=== PATIENT | male | born 1955 | race Two or more races ===

== ENCOUNTER 2023-01-21 08:17 | Inpatient (IN) | payer OTHER ==
[~2023-01-21] VITALS: Ht 180.3 cm; Wt 163.1 kg
[2023-01-21] MEDS ORDERED: PIPERACILLIN-TAZOB 3.375GM 100 ML IV ONE (09:45)
[2023-01-21 10:46] LABS: Basophils # (auto) 0.1 10 ^3/uL (0-0.2); Basophils % (auto) 0.5 % (0.0-2.0); Eosinophils # (auto) 0.1 10 ^3/uL (0-0.8); Hematocrit 45.4 % (41.0-53.0); Hemoglobin 15.6 g/dL (13.5-17.5); Lymphocytes # (auto) 2.1 10 ^3/uL (0.4-5.4); Lymphocytes % (auto) 18.3 % (10.0-50.0); Mean Corpuscular Hemoglobin 33.9 pg (28.0-32.0); Mean Corpuscular Hgb Conc. 34.3 g/dL (32.0-36.0); Mean Corpuscular Volume 98.8 fL (80.0-100.0); Monocytes # (auto) 0.6 10 ^3/uL (0-1.3); Monocytes % (auto) 5.5 % (0.0-12.0); Neutrophils # (auto) 8.8 10 ^3/uL (1.6-8.6); Neutrophils % (auto) 74.7 % (37.0-80.0); Nucleated Red Blood Cells % 0.1 %; Red Cell Distribution Width 14.4 % (11.8-14.3); White Blood Cell 11.7 10^3/uL (4.4-10.8)
[2023-01-21 11:07] LABS: Albumin 3.2 g/dL (3.4-5.0); Calcium 9.1 mg/dL (8.5-10.1); Potassium 3.6 mmol/L (3.5-5.1)
[2023-01-21 11:10] LABS: BUN/Creatinine Ratio 14.4 (10.0-20.0); Bilirubin, Total 0.5 mg/dL (0.2-1.0); Lactic Acid w/Reflex 2.9 mmol/L (0.4-2.0); Total Protein 8.2 g/dL (6.4-8.2)
[2023-01-21 12:51] VITALS: PULSE 74; RESP 18; O2SAT 98
[2023-01-21] MEDS ORDERED: CLINDAMYCIN HCL 150 MG CAP PO ONE (15:15)
[2023-01-21] MEDS ORDERED: VANCOMYCIN PER PHARMACY 0 MG IV SCH (17:00)
[2023-01-21] MEDS ORDERED: ACETAMINOPHEN 325 MG TAB PO PRN (17:00)
[2023-01-21] MEDS ORDERED: DOCUSATE SOD 100 MG CAP PO PRN (17:00)
[2023-01-21] MEDS ORDERED: HYDROmorphone HCL 2 MG/ML VL/or syr IV PRN (17:00)
[2023-01-21] MEDS: VANCOMYCIN 1GM/250ML 250 ML IV SCH (17:42)
[2023-01-21 18:53] LABS: Erythrocyte Sedimentation Rate 58 mm/hr (0-20)
[2023-01-21 19:31] VITALS: PULSE 92; RESP 13; O2SAT 90
[2023-01-21] MEDS: PIPERACILLIN-TAZO 4.5GM 100 ML IV SCH (19:54)
[2023-01-21] MEDS: SODIUM CHLOR 0.9% PF (SALINE LOCK) 10ML VIAL/SYR IV SCH (22:33)
[2023-01-21 23:22] LABS: Urine Bacteria NONE SEEN /hpf (None Seen); Urine Blood Negative /uL (Negative); Urine Clarity Clear (Clear); Urine Color Colorless (Yellow); Urine Protein, UAD Negative (Negative); Urine Specific Gravity 1.013 (1.001-1.035); Urine Urobilinogen Normal (Negative); Urine WBC 1 /hpf (0 - 3); Urine pH 5.5 (5.0-8.0)
[2023-01-22] VITALS (7 sets, daily range): BP systolic 121–129; BP diastolic 73–83; PULSE 83–101; RESP 16–24; TEMP 97.2–98.7; O2SAT 92–97
[2023-01-22] MEDS: VANCOMYCIN 1GM/250ML 250 ML IV SCH ×2 (03:27→18:03)
[2023-01-22] MEDS: PIPERACILLIN-TAZO 4.5GM 100 ML IV SCH ×3 (04:49→22:11)
[2023-01-22] MEDS: SODIUM CHLOR 0.9% PF (SALINE LOCK) 10ML VIAL/SYR IV SCH ×3 (06:10→22:12)
[2023-01-22] MEDS ORDERED: ENOXAPARIN SOD 40 MG/0.4 ML SYRINGE SC SCH (10:00)
[2023-01-22] MEDS: ENOXAPARIN SOD 40 MG/0.4 ML SYRINGE SC SCH ×2 (10:06→22:12)
[2023-01-22] MEDS ORDERED: DOXYCYCLINE 100MG/250ML 250 ML IV SCH (12:15)
[2023-01-22] MEDS ORDERED: VANCOMYCIN PER PHARMACY 0 MG IV SCH (16:30)
[2023-01-23] VITALS (8 sets, daily range): BP systolic 111–131; BP diastolic 66–78; PULSE 76–99; RESP 18–24; TEMP 98.3–99.4; O2SAT 92–98
[2023-01-23] MEDS: VANCOMYCIN 1GM/250ML 250 ML IV SCH (03:53)
[2023-01-23 06:07] LABS: Basophils # (auto) 0.1 10 ^3/uL (0-0.2); Basophils % (auto) 0.7 % (0.0-2.0); Eosinophils # (auto) 0.3 10 ^3/uL (0-0.8); Hematocrit 41.5 % (41.0-53.0); Hemoglobin 13.8 g/dL (13.5-17.5); Lymphocytes # (auto) 2.6 10 ^3/uL (0.4-5.4); Lymphocytes % (auto) 28.9 % (10.0-50.0); Mean Corpuscular Hemoglobin 33.3 pg (28.0-32.0); Mean Corpuscular Hgb Conc. 33.2 g/dL (32.0-36.0); Monocytes # (auto) 0.8 10 ^3/uL (0-1.3); Monocytes % (auto) 8.7 % (0.0-12.0); Neutrophils # (auto) 5.2 10 ^3/uL (1.6-8.6); Neutrophils % (auto) 58.7 % (37.0-80.0); Red Blood Cells 4.15 10^6/uL (4.5-5.90); Red Cell Distribution Width 14.3 % (11.8-14.3); White Blood Cell 8.9 10^3/uL (4.4-10.8)
[2023-01-23 06:09] LABS: Calcium 8.3 mg/dL (8.5-10.1); Potassium 3.6 mmol/L (3.5-5.1)
[2023-01-23 06:12] LABS: BUN/Creatinine Ratio 13.9 (10.0-20.0)
[2023-01-23] MEDS: PIPERACILLIN-TAZO 4.5GM 100 ML IV SCH (06:20)
[2023-01-23] MEDS: SODIUM CHLOR 0.9% PF (SALINE LOCK) 10ML VIAL/SYR IV SCH ×3 (06:20→22:10)
[2023-01-23] MEDS ORDERED: cefTRIAXone 1GM/50ML D5W 50 ML IV SCH (09:00)
[2023-01-23] MEDS: ENOXAPARIN SOD 40 MG/0.4 ML SYRINGE SC SCH ×2 (10:13→22:09)
[2023-01-23] MEDS: HYDROcodone-ACET 5/325MG TAB PO PRN ×3 (10:23→22:16)
[2023-01-23] MEDS: CEFEPIME 2GM/50ML NS 50 ML IV SCH (22:10)
[2023-01-24] VITALS (7 sets, daily range): BP systolic 125–140; BP diastolic 60–74; PULSE 58–117; RESP 18–24; TEMP 97.2–98.7; O2SAT 91–98
[2023-01-24] MEDS: CEFEPIME 2GM/50ML NS 50 ML IV SCH (05:31)
[2023-01-24] MEDS: SODIUM CHLOR 0.9% PF (SALINE LOCK) 10ML VIAL/SYR IV SCH ×3 (05:34→21:56)
[2023-01-24 05:58] LABS: Basophils # (auto) 0.1 10 ^3/uL (0-0.2); Basophils % (auto) 0.7 % (0.0-2.0); Eosinophils # (auto) 0.2 10 ^3/uL (0-0.8); Eosinophils % (auto) 1.5 % (0.0-7.0); Hematocrit 43.5 % (41.0-53.0); Hemoglobin 14.5 g/dL (13.5-17.5); Lymphocytes # (auto) 3.3 10 ^3/uL (0.4-5.4); Mean Corpuscular Hemoglobin 33.3 pg (28.0-32.0); Mean Corpuscular Hgb Conc. 33.3 g/dL (32.0-36.0); Mean Corpuscular Volume 99.8 fL (80.0-100.0); Monocytes # (auto) 1.2 10 ^3/uL (0-1.3); Monocytes % (auto) 9.8 % (0.0-12.0); Neutrophils # (auto) 7.4 10 ^3/uL (1.6-8.6); Nucleated Red Blood Cells % 0.2 %; Red Blood Cells 4.36 10^6/uL (4.5-5.90); Red Cell Distribution Width 14.2 % (11.8-14.3); White Blood Cell 12.1 10^3/uL (4.4-10.8)
[2023-01-24 06:13] LABS: Potassium 3.7 mmol/L (3.5-5.1)
[2023-01-24 06:21] LABS: BUN/Creatinine Ratio 12.9 (10.0-20.0); Calcium 8.7 mg/dL (8.5-10.1)
[2023-01-24] MEDS: ENOXAPARIN SOD 40 MG/0.4 ML SYRINGE SC SCH ×2 (09:00→21:56)
[2023-01-24] MEDS ORDERED: SUCRALFATE 1 GM/10 ML ORAL SUSP PO SCH (22:00)
[2023-01-25 05:00] VITALS: BP 138/78; PULSE 56; RESP 17; TEMP 97.9; O2SAT 98
[2023-01-25] MEDS: SODIUM CHLOR 0.9% PF (SALINE LOCK) 10ML VIAL/SYR IV SCH ×3 (05:16→21:53)
[2023-01-25 06:10] LABS: Basophils # (auto) 0.1 10 ^3/uL (0-0.2); Basophils % (auto) 0.5 % (0.0-2.0); Eosinophils # (auto) 0 10 ^3/uL (0-0.8); Eosinophils % (auto) 0.3 % (0.0-7.0); Hematocrit 40.7 % (41.0-53.0); Hemoglobin 14.1 g/dL (13.5-17.5); Lymphocytes # (auto) 2.4 10 ^3/uL (0.4-5.4); Mean Corpuscular Hemoglobin 33.7 pg (28.0-32.0); Mean Corpuscular Hgb Conc. 34.6 g/dL (32.0-36.0); Mean Corpuscular Volume 97.4 fL (80.0-100.0); Monocytes # (auto) 1.8 10 ^3/uL (0-1.3); Monocytes % (auto) 13.6 % (0.0-12.0); Neutrophils % (auto) 67.6 % (37.0-80.0); Nucleated Red Blood Cells % 0.1 %; Red Blood Cells 4.18 10^6/uL (4.5-5.90); Red Cell Distribution Width 14.1 % (11.8-14.3); White Blood Cell 13.2 10^3/uL (4.4-10.8)
[2023-01-25 06:31] LABS: BUN/Creatinine Ratio 14.6 (10.0-20.0); Calcium 8.7 mg/dL (8.5-10.1); Potassium 3.2 mmol/L (3.5-5.1)
[2023-01-25 09:00] VITALS: BP 120/67; PULSE 108; RESP 20; TEMP 97.8; O2SAT 92
[2023-01-25] MEDS: ENOXAPARIN SOD 40 MG/0.4 ML SYRINGE SC SCH ×2 (10:38→21:54)
[2023-01-25] MEDS: levoFLOXacin 750MG 150 ML IV SCH (10:39)
[2023-01-25] MEDS: HYDROcodone-ACET 5/325MG TAB PO PRN (10:47)
[2023-01-25 14:00] VITALS: BP 121/88; PULSE 109; RESP 20; TEMP 98.2; O2SAT 92
[2023-01-25 17:07] VITALS: BP 108/63; PULSE 101; RESP 19; TEMP 98.3; O2SAT 91
[2023-01-25 20:00] VITALS: PULSE 100; RESP 22; O2SAT 93
[2023-01-25] MEDS ORDERED: POTASSIUM CHL 20 Meq TABLET PO ONE (21:00)
[2023-01-25] MEDS: SODIUM CHLORIDE 0.9% 1,000 ML IV SCH (21:53)
[2023-01-25 22:00] VITALS: BP 121/68; PULSE 100; RESP 22; TEMP 98.4; O2SAT 93
[2023-01-26] VITALS (7 sets, daily range): BP systolic 101–133; BP diastolic 58–70; PULSE 61–96; RESP 16–20; TEMP 97.6–98.7; O2SAT 93–96
[2023-01-26 05:19] LABS: Basophils # (auto) 0.1 10 ^3/uL (0-0.2); Basophils % (auto) 0.6 % (0.0-2.0); Eosinophils # (auto) 0.1 10 ^3/uL (0-0.8); Eosinophils % (auto) 0.9 % (0.0-7.0); Hematocrit 38.5 % (41.0-53.0); Hemoglobin 13.1 g/dL (13.5-17.5); Lymphocytes # (auto) 1.8 10 ^3/uL (0.4-5.4); Lymphocytes % (auto) 14.5 % (10.0-50.0); Mean Corpuscular Hemoglobin 33.4 pg (28.0-32.0); Mean Corpuscular Hgb Conc. 34.1 g/dL (32.0-36.0); Mean Corpuscular Volume 97.8 fL (80.0-100.0); Monocytes # (auto) 1.1 10 ^3/uL (0-1.3); Monocytes % (auto) 9.1 % (0.0-12.0); Neutrophils # (auto) 9.3 10 ^3/uL (1.6-8.6); Neutrophils % (auto) 74.9 % (37.0-80.0); Red Blood Cells 3.94 10^6/uL (4.5-5.90); Red Cell Distribution Width 14.2 % (11.8-14.3); White Blood Cell 12.5 10^3/uL (4.4-10.8)
[2023-01-26 05:37] LABS: Calcium 8.5 mg/dL (8.5-10.1); Potassium 3.3 mmol/L (3.5-5.1)
[2023-01-26 05:40] LABS: BUN/Creatinine Ratio 17.9 (10.0-20.0)
[2023-01-26] MEDS: SODIUM CHLOR 0.9% PF (SALINE LOCK) 10ML VIAL/SYR IV SCH ×3 (06:29→23:41)
[2023-01-26] MEDS: SODIUM CHLORIDE 0.9% 1,000 ML IV SCH ×2 (08:15→18:17)
[2023-01-26] MEDS: ENOXAPARIN SOD 40 MG/0.4 ML SYRINGE SC SCH ×2 (09:32→23:41)
[2023-01-26] MEDS: levoFLOXacin 750MG 150 ML IV SCH (09:32)
[2023-01-26] MEDS ORDERED: POTASSIUM EFFERVESENT TAB 25 MEQ PO ONE (15:15)
[2023-01-26 19:55] LABS: Potassium 3.5 mmol/L (3.5-5.1)
[2023-01-27] VITALS (7 sets, daily range): BP systolic 104–139; BP diastolic 60–77; PULSE 86–99; RESP 18–20; TEMP 97.3–98.6; O2SAT 93–98
[2023-01-27] MEDS: SODIUM CHLOR 0.9% PF (SALINE LOCK) 10ML VIAL/SYR IV SCH ×3 (06:00→22:01)
[2023-01-27 06:16] LABS: Basophils # (auto) 0 10 ^3/uL (0-0.2); Basophils % (auto) 0.5 % (0.0-2.0); Eosinophils # (auto) 0.2 10 ^3/uL (0-0.8); Eosinophils % (auto) 1.7 % (0.0-7.0); Hematocrit 36.4 % (41.0-53.0); Hemoglobin 12.4 g/dL (13.5-17.5); Lymphocytes # (auto) 1.6 10 ^3/uL (0.4-5.4); Lymphocytes % (auto) 17.2 % (10.0-50.0); Mean Corpuscular Hemoglobin 33.6 pg (28.0-32.0); Mean Corpuscular Hgb Conc. 34.2 g/dL (32.0-36.0); Mean Corpuscular Volume 98.3 fL (80.0-100.0); Monocytes % (auto) 10.4 % (0.0-12.0); Neutrophils # (auto) 6.6 10 ^3/uL (1.6-8.6); Neutrophils % (auto) 70.2 % (37.0-80.0); Red Cell Distribution Width 14.4 % (11.8-14.3); White Blood Cell 9.4 10^3/uL (4.4-10.8)
[2023-01-27 06:42] LABS: Calcium 8.3 mg/dL (8.5-10.1); Potassium 3.2 mmol/L (3.5-5.1)
[2023-01-27 06:44] LABS: BUN/Creatinine Ratio 19.5 (10.0-20.0)
[2023-01-27] MEDS ORDERED: POTASSIUM CHL 20 Meq TABLET PO ONE (09:00)
[2023-01-27] MEDS: levoFLOXacin 750MG 150 ML IV SCH (11:10)
[2023-01-27] MEDS: ENOXAPARIN SOD 40 MG/0.4 ML SYRINGE SC SCH ×2 (11:12→22:01)
[2023-01-27] MEDS: SODIUM CHLORIDE 0.9% 1,000 ML IV SCH ×3 (11:22→23:15)
[2023-01-28] VITALS (7 sets, daily range): BP systolic 102–147; BP diastolic 61–96; PULSE 60–114; RESP 17–20; TEMP 98.1–98.4; O2SAT 91–94
[2023-01-28 05:41] LABS: Calcium 8.2 mg/dL (8.5-10.1); Potassium 3.2 mmol/L (3.5-5.1)
[2023-01-28 05:45] LABS: BUN/Creatinine Ratio 16.7 (10.0-20.0)
[2023-01-28] MEDS: SODIUM CHLOR 0.9% PF (SALINE LOCK) 10ML VIAL/SYR IV SCH ×3 (06:36→21:22)
[2023-01-28] MEDS: SODIUM CHLORIDE 0.9% 1,000 ML IV SCH ×2 (09:36→17:05)
[2023-01-28] MEDS: levoFLOXacin 750MG 150 ML IV SCH (09:36)
[2023-01-28] MEDS: ENOXAPARIN SOD 40 MG/0.4 ML SYRINGE SC SCH ×2 (09:36→21:22)
[2023-01-28] MEDS ORDERED: POTASSIUM CHL 20 Meq TABLET PO ONE (09:45)
[2023-01-28] MEDS ORDERED: Ensure HIGH Protein Chocolate 8oz Bottle PO SCH (12:00)
[2023-01-28] MEDS: Glucerna Carbsteady SHAKE Vanilla 8oz PO SCH (17:06)
[2023-01-29 05:00] VITALS: BP 143/93; PULSE 98; RESP 24; TEMP 98.4; O2SAT 91
[2023-01-29] MEDS: SODIUM CHLORIDE 0.9% 1,000 ML IV SCH (05:15)
[2023-01-29 06:00] LABS: Basophils # (auto) 0.1 10 ^3/uL (0-0.2); Basophils % (auto) 0.6 % (0.0-2.0); Eosinophils # (auto) 0.1 10 ^3/uL (0-0.8); Hematocrit 42.9 % (41.0-53.0); Hemoglobin 14.5 g/dL (13.5-17.5); Lymphocytes # (auto) 2.4 10 ^3/uL (0.4-5.4); Lymphocytes % (auto) 20.9 % (10.0-50.0); Mean Corpuscular Hemoglobin 33.2 pg (28.0-32.0); Mean Corpuscular Hgb Conc. 33.9 g/dL (32.0-36.0); Monocytes % (auto) 8.4 % (0.0-12.0); Neutrophils % (auto) 69.1 % (37.0-80.0); Nucleated Red Blood Cells % 0.1 %; Red Blood Cells 4.38 10^6/uL (4.5-5.90); Red Cell Distribution Width 14.4 % (11.8-14.3); White Blood Cell 11.5 10^3/uL (4.4-10.8)
[2023-01-29 06:26] LABS: BUN/Creatinine Ratio 15.2 (10.0-20.0); Calcium 9.2 mg/dL (8.5-10.1); Potassium 3.5 mmol/L (3.5-5.1)
[2023-01-29] MEDS: SODIUM CHLOR 0.9% PF (SALINE LOCK) 10ML VIAL/SYR IV SCH ×3 (06:33→22:03)
[2023-01-29] MEDS: Glucerna Carbsteady SHAKE Vanilla 8oz PO SCH ×3 (08:00→18:50)
[2023-01-29 09:00] VITALS: BP 165/85; PULSE 78; RESP 22; TEMP 98; O2SAT 95
[2023-01-29] MEDS: ENOXAPARIN SOD 40 MG/0.4 ML SYRINGE SC SCH ×2 (09:58→22:03)
[2023-01-29] MEDS: levoFLOXacin 750MG 150 ML IV SCH (09:59)
[2023-01-29 10:00] VITALS: BP 131/85; PULSE 105
[2023-01-29] MEDS ORDERED: LEVO750T40 PO (10:58)
[2023-01-29 11:56] LABS: Base Excess 1.9 mmol/L (-2.0-2.0)
[2023-01-29 13:00] VITALS: BP 138/73; PULSE 97; RESP 24; TEMP 98.3; O2SAT 96
[2023-01-29 17:00] VITALS: BP 127/67; PULSE 99; RESP 24; TEMP 99; O2SAT 96
[2023-01-29 22:00] VITALS: BP 114/69; PULSE 98; RESP 18; TEMP 98.4; O2SAT 96
[2023-01-30 05:00] VITALS: BP 118/58; PULSE 93; RESP 20; TEMP 98.3; O2SAT 94
[2023-01-30] MEDS: SODIUM CHLOR 0.9% PF (SALINE LOCK) 10ML VIAL/SYR IV SCH ×2 (06:00→13:30)
[2023-01-30] MEDS: Glucerna Carbsteady SHAKE Vanilla 8oz PO SCH ×3 (08:50→18:03)
[2023-01-30] MEDS: levoFLOXacin 750MG 150 ML IV SCH (08:51)
[2023-01-30] MEDS: ENOXAPARIN SOD 40 MG/0.4 ML SYRINGE SC SCH (08:51)
[2023-01-30 09:00] VITALS: BP 127/68; PULSE 70; RESP 20; TEMP 97.2; O2SAT 95
[2023-01-30 13:00] VITALS: BP 109/88; PULSE 116; RESP 18; TEMP 97.1; O2SAT 92
[2023-01-30 17:00] VITALS: BP 127/74; PULSE 83; RESP 20; TEMP 97.3; O2SAT 96
== END 2023-01-30 18:44 | disposition home or self-care (01) | DRG 602 ==
LOC: ER 08:17 → TELE 17:03 → TELE-CENTR 01-22 15:30 → CENTRAL 01-24 14:15
PROVIDERS: ADMIT Internal Medicine Pulmonary Disease; ATTEND Internal Medicine
DX: L03.115 Cellulitis of right lower limb (principal); N17.0 Acute kidney failure with tubular necrosis; Z68.43 Body mass index [BMI] 50.0-59.9, adult; L97.319 Non-pressure chronic ulcer of right ankle with unspecified severity; E44.1 Mild protein-calorie malnutrition; E66.2 Morbid (severe) obesity with alveolar hypoventilation; L03.116 Cellulitis of left lower limb; E87.6 Hypokalemia; M10.9 Gout, unspecified; M79.601 Pain in right arm
CPT/HCPCS: 36415; 36600; 71045; 73590; 73700; 73718; 80048; 80051; 80053; 80202; 81001; 82805; 83036; 83605; 85025; 85652; 86141; 87040; 87077; 87186; 87205; 93005; 93306; 93925; 93971; 96365; 97110; 97116; 97163; 97530; G0378; J0692; J1956; J2543; J3490